=== PATIENT | female | born 2000 | race Native Hawaiian/Other Pacific Islander ===

== ENCOUNTER 2020-10-12 22:48 | Emergency (ER) | payer OTHER, SELFPAY ==
--- NOTE | 2020-10-12 22:54 | W.ED.ABDPA2 ---
HPI - Abdominal Pain General: Chief Complaint: Abdominal Pain Stated Complaint: stomach pain Time Seen by Provider: 10/12/20 22:53 History of Present Illness: HPI narrative: Patient comes in with some epigastric pain that she has had for the last 3 months. Patient reports difficulty sleeping at night due to the pain. Patient has decreased appetite and has been reported 10 pound weight loss over the last 3 months. Mother did report that she did have some blood in her vomit 3 months ago but has not had much since then. Mother feels that she may have had a ulcer. Patient has been using [id number] Pepto-Bismol and Tums with minimal relief. Review of Systems General: Reports: 10 or more systems reviewed and unremarkable except in HPI and below GI: Reports: abdominal pain Physical Exam Const: COMMON NORMALS: no acute distress and patient oriented x3 GENERAL APPEARANCE: cooperative HENMT: COMMON NORMALS: normocephalic and Normal external nose present HEAD & SCALP: normal to inspection and normocephalic NOSE: Normal external nose present MOUTH: Normal oral and palatal mucosa present Eye: GENERAL EYE: appearance normal, both eyes and all related structures Neck/C-Spine: COMMON NORMALS: full ROM Chest: COMMONS NORMALS: normal inspection of the chest Resp: COMMON NORMALS: normal respiratory effort EFFORT & INSPECTION: Yes able to speak in complete sentences Cardio: COMMON NORMALS: regular rate and regular rhythm RATE: regular rate RHYTHM: regular rhythm GI: AUSCULTATION: Yes normoactive bowel sounds PALPATION: Yes Firmness to palpation present (GI) and Yes Tenderness to palpation present (GI) (Epigastric) : COMMON NORMALS: Yes no CVA tenderness BLADDER/KIDNEY EXAM: Yes no CVA tenderness Back/Pelvis: COMMON NORMALS: no CVA tenderness and thoracic and lumbar spine normal to inspection Extremity: COMMON NORMALS: normal to inspection Neuro: COMMON NORMALS: patient oriented x3 and moves all extremities Psych: COMMON NORMALS: mental status grossly normal and cooperative Skin: COMMON NORMALS: no rashes or lesions noted GENERAL SKIN EXAM: no rashes or lesions noted Course Vital Signs: Vital signs: Vital Signs Temperature 97.9 F 10/12/20 22:55 Pulse Rate 65 10/12/20 22:55 Respiratory Rate 16 10/12/20 22:55 Blood Pressure 124/81 10/12/20 22:55 Pulse Oximetry 100 10/12/20 22:55 MDM - Abdominal Pain MDM Narrative: Medical decision making narrative: Patient comes in for 3 months of abdominal epigastric pain with occasional nausea and vomiting and noticeable blood in the vomitus. No fever has been reported. Patient appears well. Patient appears in mild to moderate pain. Patient reports he has had severe symptoms for the last 2 days. On exam abdomen is soft with some epigastric tenderness. Bowel sounds are present. Vital signs are normal. Differential diagnosis includes but not limited to cholecystitis, peptic ulcer disease, pancreatitis, GERD. Laboratory values were unremarkable. CT scan noted no significant abnormalities. I feel the patient probably has a gastroesophageal reflux versus a peptic ulcer disease. Patient was given famotidine and ondansetron with some relief. Patient was then given a GI cocktail for further treatment. Patient then was placed on pantoprazole 40 mg daily for the next 28 days. We have also placed a request for patient to be referred to general surgery for a EGD for further evaluation of the reflux and gastritis. Lab Data: Labs: Lab Results 10/12/20 10/12/20 10/12/20 Range/Units 23:13 23:13 23:13 WBC 7.9 (4.5-13.0) 10^3/ uL RBC 4.05 L (4.1-5.3) 10^6/u L Hgb 12.7 (11.5-15.3) g/dL Hct 37.6 (37.0-47.0) % MCV 92.8 (81-99) fL MCH 31.4 (28.0-34.0) pg MCHC 33.8 (30.0-36.0) g/dL RDW 11.9 L (12.1-15.1) % Plt Count 273 (130-400) 10^3/c mm MPV 10.3 (7.4-10.4) fL Neut % (Auto) 55.4 % Lymph % (Auto) 32.0 % [place] % (Auto) 11.5 % Eos % (Auto) 0.6 % Baso % (Auto) 0.4 % Neut # (Auto) 4.35 (1.8-8.0) 10^3/u L Lymph # (Auto) 2.5 (1.5-6.5) 10^3/u L [place] # (Auto) 0.9 (0.2-0.9) 10^3/u L Eos # (Auto) 0.1 (0.0-0.8) 10^3/u L Baso # (Auto) 0.0 (0.0-0.1) 10^3/u L Nucleated RBC % (a uto) 0 % Nucleated RBCs # 0.0 /100WBC Sodium 139 (136-145) mmol/L Potassium 4.2 (3.5-5.1) mmol/L Chloride 106 (98-107) mmol/L Carbon Dioxide 23 (22-29) mmol/L Anion Gap 14.2 (5-19) BUN 12 (6-20) mg/dL Creatinine 0.5 (0.5-0.9) mg/dL GFR Calculation 158.9 H (90-130) mL/min Glucose 96 (65-115) mg/dL Calculated Osmolal ity 288 (285-295) mOsm/k g Calcium 8.5 (8.5-10.5) mg/dL Total Bilirubin 0.7 (0.15-1.2) mg/dL AST 23 (0-32) U/L ALT 15 (0-33) U/L Alkaline Phosphata se 45 (35-105) IU/L Total Protein 7.1 (6.6-8.7) g/dL Albumin 4.3 (3.5-5.2) g/dL Globulin 2.8 (1.3-4.6) g/dL Lipase 38 (13-60) U/L HCG, Qual Negative (Negative) Urine Color (Yellow) Urine Appearance (CLEAR) Urine pH (5-7) Ur Specific Gravit y (1.005-1.030) Urine Protein (Negative) Urine Glucose (UA) (Normal) Urine Ketones (Negative) Urine Blood (Negative) Urine Nitrate (Negative) Urine Bilirubin (Negative) Urine Urobilinogen (Negative) mg/dL Ur Leukocyte Claudette ase (Negative) 10/12/20 Range/Units 23:20 WBC (4.5-13.0) 10^3/ uL RBC (4.1-5.3) 10^6/u L Hgb (11.5-15.3) g/dL Hct (37.0-47.0) % MCV (81-99) fL MCH (28.0-34.0) pg MCHC (30.0-36.0) g/dL RDW (12.1-15.1) % Plt Count (130-400) 10^3/c mm MPV (7.4-10.4) fL Neut % (Auto) % Lymph % (Auto) % [place] % (Auto) % Eos % (Auto) % Baso % (Auto) % Neut # (Auto) (1.8-8.0) 10^3/u L Lymph # (Auto) (1.5-6.5) 10^3/u L [place] # (Auto) (0.2-0.9) 10^3/u L Eos # (Auto) (0.0-0.8) 10^3/u L Baso # (Auto) (0.0-0.1) 10^3/u L Nucleated RBC % (a uto) % Nucleated RBCs # /100WBC Sodium (136-145) mmol/L Potassium (3.5-5.1) mmol/L Chloride (98-107) mmol/L Carbon Dioxide (22-29) mmol/L Anion Gap (5-19) BUN (6-20) mg/dL Creatinine (0.5-0.9) mg/dL GFR Calculation (90-130) mL/min Glucose (65-115) mg/dL Calculated Osmolal ity (285-295) mOsm/k g Calcium (8.5-10.5) mg/dL Total Bilirubin (0.15-1.2) mg/dL AST (0-32) U/L ALT (0-33) U/L Alkaline Phosphata se (35-105) IU/L Total Protein (6.6-8.7) g/dL Albumin (3.5-5.2) g/dL Globulin (1.3-4.6) g/dL Lipase (13-60) U/L HCG, Qual (Negative) Urine Color Yellow (Yellow) Urine Appearance Clear (CLEAR) Urine pH 7 (5-7) Ur Specific Gravit y 1.005 (1.005-1.030) Urine Protein Neg (Negative) Urine Glucose (UA) Norm (Normal) Urine Ketones Negative (Negative) Urine Blood Neg (Negative) Urine Nitrate Negative (Negative) Urine Bilirubin Neg (Negative) Urine Urobilinogen Norm (Negative) mg/dL Ur Leukocyte Claudette ase Negative (Negative) Discharge Plan Discharge Patient Disposition: Home Clinical Impression: Gastritis Qualifiers: Gastritis type: unspecified gastritis Chronicity: unspecified Gastritis bleeding: presence of bleeding unspecified Qualified Code(s): K29.70 - Gastritis, unspecified, without bleeding Condition: Stable Prescriptions: New pantoprazole 40 mg tablet,delayed release (DR/EC) 40 mg PO DAILY 28 Days Qty: 28 RF: 0 Discharge Orders: Discharge ED (Routine); Ordered 10/13/20 Ordered By: Jorgito Pearson Discharge Diet: Advance as tolerated Discharge Activity: Increase activity as tolerated Patient Instructions: Gastritis (ED), Opioid Safety Activity Restrictions/Additional Instructions: Take pantoprazole 40 mg 1 tablet daily 30 minutes prior to the first meal of the day. Avoid carbonated beverages. Avoid smoking. Avoid really acidic or spicy foods. Monitor foods that may aggravate your gastritis more. Try to avoid laying down 2 hours after eating. Follow-up with primary care for further evaluation and treatment. Case management will contact you regarding follow-up for EGD for further evaluation of symptoms. Return to the emergency room for new concerns or worsening symptoms. Coding Level of Care Code ED [employer] Worker for Jose Miguel Garcia
[2020-10-12 22:55] VITALS: BP 124/81; PULSE 65; RESP 16; TEMP 36.6; O2SAT 100; BMI 25.7
--- NOTE | 2020-10-12 23:03 | CTR_ITS ---
PROCEDURE INFORMATION: Exam: CT Abdomen And Pelvis With Contrast Exam date and time: 10/12/2020 11:31 PM Age: 19 years old Clinical indication: Abdominal pain; Localized; Patient HX: C/O upper abd pain and wt loss x 3 months; Additional info: Epigastric pain, weight loss TECHNIQUE: Imaging protocol: Computed tomography of the abdomen and pelvis with contrast. Radiation optimization: All CT scans at this facility use at least one of these dose optimization techniques: automated exposure control; mA and/or kV adjustment per patient size (includes targeted exams where dose is matched to clinical indication); or iterative reconstruction. Contrast material: OMNI 300; Contrast volume: 95 ml; Contrast route: INTRAVENOUS (IV); COMPARISON: No relevant prior studies available. RADIATION DOSE METRICS: Total DLP (mGy-cm): 1120.59 FINDINGS: The lung bases are clear. The visualized bony structures are unremarkable. There is no liver mass. There is no intrahepatic biliary dilatation. No gallstones are seen within the gallbladder. The pancreas is unremarkable. The spleen is unremarkable. There is no adrenal mass. There is no hydronephrosis. There are no renal calculi. There is no perinephric stranding. There is no renal mass. The aorta is normal in caliber. The IVC is normal in caliber. There is no retroperitoneal adenopathy. There is no mesenteric adenopathy. The stomach is unremarkable. The small bowel loops in the upper abdomen are nondistended with no bowel wall thickening. The colonic structures within the upper abdomen are normal in caliber with no bowel wall thickening. Within the pelvis: A normal appendix is seen within the right lower quadrant. The bladder is unremarkable. The uterus is unremarkable. There are no adnexal masses. There is a scant amount of free fluid within cul-de-sac. There is no inguinal adenopathy. There is no pelvic adenopathy. The bowel loops within the pelvis are unremarkable. CT/CT abdomen pelvis w con* [id number] IMPRESSION: 1. No evidence for bowel obstruction or bowel wall thickening. 2. Scant amount of free fluid in the cul-de-sac which is nonspecific. Radiation Dose CTDIVOL = (mGy): DLP = 1120.59 (mGy-cm)
[2020-10-12 23:20] LABS: Basophils % 0.4 %; Eosinophils # 0.1 10^3/uL (0.0-0.8); Eosinophils % 0.6 %; Hematocrit 37.6 % (37.0-47.0); Hemoglobin 12.7 g/dL (11.5-15.3); Lymphocytes # 2.5 10^3/uL (1.5-6.5); Mean Corpuscular HGB Conc 33.8 g/dL (30.0-36.0); Mean Corpuscular Hemoglobin 31.4 pg (28.0-34.0); Mean Corpuscular Volume 92.8 fL (81-99); Mean Platelet Volume 10.3 fL (7.4-10.4); Monocytes # 0.9 10^3/uL (0.2-0.9); Monocytes % 11.5 %; Neutrophils # 4.35 10^3/uL (1.8-8.0); Neutrophils % 55.4 %; Nucleated Red Blood Cells % 0 %; Platelet Count 273 10^3/cmm (130-400); Red Blood Count 4.05 10^6/uL (4.1-5.3); Red Cell Distribution Width 11.9 % (12.1-15.1); White Blood Count 7.9 10^3/uL (4.5-13.0)
[2020-10-12] MEDS: ondansetron 2 mg/ML SDV 2 mL 4 MG IVP (23:21)
[2020-10-12] MEDS: famotidine 20 mg/2 mL INJ 40 MG IVP (23:21)
[2020-10-12] MEDS: sodium chloride 0.9% 500 ML 999 ML IV (23:21)
[2020-10-12 23:32] LABS: HCG, Serum Qual Negative (Negative)
[2020-10-12 23:38] LABS: Alanine Aminotransferase 15 U/L (0-33); Albumin Level 4.3 g/dL (3.5-5.2); Alkaline Phosphatase 45 IU/L (35-105); Blood Urea Nitrogen 12 mg/dL (6-20); Calcium 8.5 mg/dL (8.5-10.5); Carbon Dioxide 23 mmol/L (22-29); Chloride 106 mmol/L (98-107); Creatinine Clr Calc Pharmacy 171.5184; Globulin 2.8 g/dL (1.3-4.6); Glomerular Filtration Rate 158.9 mL/min (90-130); Glucose 96 mg/dL (65-115); Lipase 38 U/L (13-60); Osmolality Calculated 288 mOsm/kg (285-295); Sodium 139 mmol/L (136-145); Total Bilirubin 0.7 mg/dL (0.15-1.2); Total Protein 7.1 g/dL (6.6-8.7)
[2020-10-12 23:39] LABS: Add Urine Microscopic? NO; Charge for UA Resulting for Rev
[2020-10-12] MEDS: iohexol 300 mg/mL 100 mL Btl IV (23:40)
[2020-10-12 23:42] LABS: Anion Gap 14.2 (5-19)
[2020-10-12 23:43] LABS: Aspartate Amino Transferase 23 U/L (0-32); Potassium 4.2 mmol/L (3.5-5.1)
[2020-10-12 23:47] LABS: Bilirubin Urine Neg (Negative); Blood Urine Neg (Negative); Glucose Urine UA Norm (Normal); Ketones Urine Negative (Negative); Leukocyte Esterase Urine Negative (Negative); Nitrate Urine Negative (Negative); Protein Urine Neg (Negative); Specific Gravity, Urine 1.005 (1.005-1.030); Urine Appearance Clear (CLEAR); Urine Color Yellow (Yellow); Urobilinogen Urine Norm (Negative); pH Urine 7 (5-7)
[2020-10-13] MEDS: lidocaine 2% viscous 15 ML, aluminum-mag hydrox-simethicon 30 ML, sucralfate oral liq 1 GM PO (01:00)
[2020-10-13 01:02] VITALS: BP 114/73; PULSE 86; RESP 15; TEMP 36.6; O2SAT 97
--- NOTE | 2020-10-18 15:10 | DCPLANNER ---
manager business continuity had message to schedule a follow up appointment for patient with general surgery for an EGD, to further evaluate reflux and gastritis. manager business continuity emailed patients information to both Cata and Mayra at [facility] General Surgery. Patients information will be printed and reviewed. Clinic will call patient with appointment information.
--- NOTE | 2020-10-22 11:36 | DCPLANNER ---
Patient has a follow up appointment scheduled for , October 31, 2020 at 10:[address] Ledezma at [facility] General Surgery. Clinic will call patient with appointment information.
--- NOTE | 2020-12-02 07:35 | DCPLANNER ---
Patient had follow up appointment scheduled for 10.31.[address] nick at General Surgery - patient did attend appointment.
== END 2020-10-13 01:07 | disposition home or self-care (01) ==
PROVIDERS: Emergency Provider Nurse Practitioner Family
DX: K29.70 Gastritis, unspecified, without bleeding (principal)
CPT/HCPCS: 74177; 80053; 81003; 83690; 84703; 85025; 96374; 96375; 99283; J2405; J3490; J7040; Q9967

== ENCOUNTER → 2020-11-22 08:47 | Outpatient (BNVA) | payer OTHER, SELFPAY | PROVIDERS: Visit Provider Surgery | DX: K29.70 Gastritis, unspecified, without bleeding (principal); K21.9 Gastro-esophageal reflux disease without esophagitis | CPT/HCPCS: 87635 ==

== ENCOUNTER 2020-11-27 07:02 | Day surgery (SDC) | payer OTHER, SELFPAY ==
[2020-11-25 12:35] VITALS: BMI 26.6
[2020-11-27 07:21] VITALS: BP 124/69; PULSE 54; RESP 18; TEMP 36.2; O2SAT 97
[2020-11-27 07:29] LABS: OR HCG Qualitative Urine Negative (Negative)
--- NOTE | 2020-11-27 07:40 | ANES.PREANE2 ---
Pre-Anesthetic Assessment Pre-Anesthetic Assessment: Height/Weight: Height 1.63 m Weight 70.307 kg Temp Pulse Resp BP Pulse Ox 97.1 F L 54 L 18 124/69 97 11/27/20 07:21 11/27/20 07:21 11/27/20 07:21 11/27/20 07:21 11/27/20 07:21 Preop Diagnosis: History of hematemesis and abdominal pain Proposed Procedure: Operation Date: 11/27/20 08:00 Proposed Procedures p EGD 51492 K29.70 K21.9(Not Applicable) - Lester Ledezma MD Familial anesthetic complications: none Was Beta Sharif taken within 24 hours: N/A Was Clonidine taken within 24 hours: N/A Last intake: Intake Last Liquid Date 11/26/20 Last Liquid Time 23:00 Last Solid Date 11/26/20 Last Solid Time 20:00 Social: Social History: No alcohol and No tobacco Exam: Pre-Anes Outpt Exam: alert, oriented x 3, clear to auscultation bilaterally and regular rate & rhythm Airway: Submandibular: WNL Cervical ROM: WNL MP: 1 Dentition: Full History/ROS: No significant history except as noted Pulmonary: Pulmonary: None reported CV/HEM: CV/HEM: None reported : : None reported Hepatic: Hepatic: None reported GI: GI: None reported Metabolic: Metabolic: None reported Musc/skel: Musc/skel: None reported Neuropsych: Neuropsych: None reported Anesthetic Plan: ASA status: 1 Anesthesia: MAC Risk of > 500 ml blood loss (7ml/kg in children): No PFSH Anesthesia PFSH: Social History Smoking and tobacco status: never smoked Data Anesthesia Other Labs: Laboratory Results - last 48 hr 11/27/20 07:25 Urine HCG, Qual Negative Cardiac Studies: No Data to Display
[2020-11-27] MEDS: sodium chloride 0.9% 1,000 ML 30 ML IV (07:41)
--- NOTE | 2020-11-27 07:59 | W.PM.OPSUD ---
Surgery/Procedure H&P Update DATE OF PROCEDURE: November 27, 2020 DATE H&P PERFORMED: 10/31/20 H&P UPDATE INFORMATION: I have reviewed H&P completed within last 30 days, I have examined patient prior to procedure and No changes to prior documentation PREOP DIAGNOSIS: History of hematemesis and abdominal pain PRIMARY INDICATION FOR PROCEDURE: The same PLANNED PROCEDURE: Operation Date: 11/27/20 08:00 Proposed Procedures p EGD 41091 K29.70 K21.9(Not Applicable) - Lester Ledezma MD
[2020-11-27 08:20] VITALS: BP 116/66; PULSE 63; RESP 14; TEMP 36.3; O2SAT 98
[2020-11-27 08:24] VITALS: BP 118/68; PULSE 66; RESP 16; TEMP 36.7; O2SAT 99
--- NOTE | 2020-11-27 08:53 | ANE.PACU2 ---
Inpatient post-anesthesia follow up: Airway intact: Yes Vital signs: Temperature 98.0 F Pulse Rate 66 Respiratory Rate 16 Blood Pressure 118/68 Pulse Oximetry 99 Oxygen Delivery Me thod Room Air Oxygen Flow Rate Fraction of Inspir ed Oxygen Hydration adequate: Yes Nausea and vomiting: No Mental status: Baseline
[2020-11-28 06:03] LABS: H. Pylori / CLO Test Negative
== END 2020-11-27 08:55 | disposition home or self-care (01) ==
PROVIDERS: Anesthesiology; PCP Family Medicine; Visit Provider Surgery
PROC: 0DJ08ZZ Inspection of Upper Intestinal Tract, Via Natural or Artificial Opening Endoscopic (ICD-10-PCS; CPT 43235; principal; 2020-11-27 08:00)
DX: R10.11 Right upper quadrant pain (principal); R14.0 Abdominal distension (gaseous); K21.00 Gastro-esophageal reflux disease with esophagitis, without bleeding; K29.70 Gastritis, unspecified, without bleeding
CPT/HCPCS: 43239; 81025; 84703; 87077; 96360; J2704; J7030

== ENCOUNTER 2020-12-11 08:59 | Outpatient (CLI) | payer OTHER, SELFPAY ==
--- NOTE | 2020-12-11 09:30 | US_ITS ---
WS: [id number] RIGHT UPPER QUADRANT ULTRASOUND HISTORY: K29.70 - Gastritis, unspecified, without bleeding COMPARISON: None available. Liver: 16.2 cm in length. Normal size liver. No bile duct dilatation or mass. Gallbladder: Normally distended gallbladder with no stones or wall thickening. CBD: 0.2 cm Pancreas: Normal size and echogenicity. Right kidney: 10.3 cm in length. Normal size and echogenicity. No hydronephrosis or mass. Aorta and IVC: Unremarkable abdominal aorta and IVC. No ascites. US/US gall bladder [id number] IMPRESSION: Normal RIGHT upper quadrant ultrasound.
== END 2020-12-11 09:00 | disposition home or self-care (01) ==
PROVIDERS: PCP Family Medicine; Visit Provider Surgery
DX: K29.70 Gastritis, unspecified, without bleeding (principal)
CPT/HCPCS: 76705

== ENCOUNTER 2020-12-12 08:11 | Outpatient (CLI) | payer OTHER, SELFPAY ==
--- NOTE | 2020-12-12 08:00 | NM_ITS ---
WS: [id number] NUCLEAR MEDICINE HIDA SCAN WITH GALLBLADDER EJECTION FRACTION HISTORY: R10.11 - Right upper quadrant pain COMPARISON: Gallbladder ultrasound 12/12/2019 TECHNIQUE: The patient was intravenously injected with 4.0 mCi of TC99m Mebrofenin. Immediate imaging over the right upper quadrant was followed by 5 minute image and additional images for a total of 60 minutes. Normal uptake of radiotracer throughout the liver. Activity identified in the gallbladder at 15 minutes and well distended by 60 minutes. Activity in the proximal small bowel was seen by 30 minutes. Good washout of the radiotracer from the liver by 60 minutes. The patient then drank 8 ounces of Ensure Plus. Ejection fraction at 60 minutes was 74%. Normal GB ej ection fraction is 35-75%. Post fatty meal symptoms: None. NM/NM hepatobiliary w phar* [id number] IMPRESSION: 1. Normal HIDA scan. 2. Normal gallbladder ejection fraction.
== END 2020-12-12 08:12 | disposition home or self-care (01) ==
PROVIDERS: PCP Family Medicine; Visit Provider Surgery
DX: R10.11 Right upper quadrant pain (principal)
CPT/HCPCS: 78227; A9537

== ENCOUNTER → 2025-02-28 11:16 | Outpatient (BNVA) | payer OTHER, SELFPAY | PROVIDERS: PCP Family Medicine; Visit Provider Nurse Practitioner Women's Health | DX: N94.6 Dysmenorrhea, unspecified (principal); N92.6 Irregular menstruation, unspecified; Z01.419 Encounter for gynecological examination (general) (routine) without abnormal findings | CPT/HCPCS: 80053; 81000; 82306; 83036; 83520; 83525; 84146; 84402; 84403; 84443; 85025 ==

== ENCOUNTER → 2025-03-12 08:41 | Outpatient (BNVA) | payer OTHER, SELFPAY | PROVIDERS: PCP Family Medicine; Visit Provider Nurse Practitioner Women's Health | DX: N92.0 Excessive and frequent menstruation with regular cycle (principal); N94.6 Dysmenorrhea, unspecified | CPT/HCPCS: 76830; 76856 ==